=== PATIENT | female | born 1970 | race Caucasian/White ===

== ENCOUNTER → 2018-02-10 10:39 | Outpatient (CLI) | payer BC, SELFPAY ==
[2018-02-10 12:34] LABS: ALB/GLOB Ratio 1.1 RATIO (0.9-2.4); AST(SGOT) 14 U/L (15-37); Alanine Aminotransfer ALT/SGPT 15 U/L (13-56); Albumin, Serum 3.9 g/dL (3.2-5.0); Alkaline Phosphatase 67 U/L (45-117); Anion Gap 8 (5-15); BUN 13 mg/dL (7-18); BUN/Creat Ratio 15.2 RATIO (10-20); Calcium,Total 8.8 mg/dL (8.5-10.1); Chloride 106 mmol/L (98-107); Creatinine, Serum 0.85 mg/dL (0.55-1.02); EST Glomerular Filtration Rate 75 mL/min (>60); Est Glom Filt Rate - Afr Amer 91 mL/min (>60); Globulin 3.6 g/dL (2.2-4.2); Glucose 81 mg/dL (74-106); Potassium 4.1 mmol/L (3.5-5.1); Protein, Total 7.5 g/dL (6.4-8.2); Sodium Level 139 mmol/L (136-145)
== END ==
PROVIDERS: Family Provider Family Medicine; PCP Family Medicine; Visit Provider Family Medicine
DX: L40.9 Psoriasis, unspecified (principal); I10 Essential (primary) hypertension
CPT/HCPCS: 36415; 80053

== ENCOUNTER → 2018-04-22 10:25 | Outpatient (CLI) | payer BC, SELFPAY ==
[2018-04-21 14:22] VITALS: BMI 22.1
[2018-04-28 11:46] LABS: HPV Reflexed? NOT INDICATED
--- OUTSIDE RECORDS SUMMARY | 2018-06-08 05:26 | XMS RPT_ITS ---
:1970 Author Organization [facility] Care Team Providers Name Role Phone Iftikhar Hager Attending Unavailable Brown, Iftikhar Referring Unavailable Brown, Iftikhar Attending Unavailable Brown, Iftikhar Referring Unavailable Brown, Iftikhar Primary Care Unavailable Daisy Espino Attending Unavailable Brown, Iftikhar Attending Unavailable Brown, Iftikhar Referring Unavailable Brown, Iftikhar Attending Unavailable Brown, Iftikhar Primary Care Unavailable PROBLEMS PROBLEMS DATE TYPE CONDITION / CODE ATTENDING STATUS SOURCE 04/21/2018 Unknown Z01.419 - Encounter Iftikhar Hager Active [place] for [facility] (general) (routine) Repository without abnormal findings / Z01.419(ICD-10) 02/11/2018 Unknown L40.9 - Psoriasis, Iftikhar Hager Active [place] unspecified / Community L40.9(ICD-10) Hospital Repository 02/11/2018 Unknown I10 - Essential Iftikhar Hager Active [place] (primary) Community hypertension / Hospital I10(ICD-10) Repository PROCEDURES PROCEDURES No Procedure Records FoundRESULTS RESULTS PAP I-G W/RFX HRHPV Collected: 04/22/2018 Status: F Source[place] 10[place] [facility] [place] Order Comment: CYTOLOGY INFORMATION: - CLINICAL INFORMATION: - DATE LMP/MENOPAUSE: [id number] LMP - COLLECTION VIAL: Thin Prep Vial - ASSISTANT MANAGER TRAINEE SOURCE: CERVICAL - COLLECTION TECHNIQUE: BRUSH ONLY Specimen Comment: [id number] Specimen Comment: Source.............Cervix Specimen Comment: LMP / Prev Treat...[id number] Specimen Comment: No. of containers..01 ThinPrep Vial TYPE CODE TESTS RESULT OUT OF RANGE REFERENCE UNITS LAB L7400.0800 . Normal DIAGN Comment Result Comment: NEGATIVE FOR INTRAEPITHELIAL LESION AND MALIGNANCY. THIS SPECIMEN WAS RESCREENED PART OF OUR SHEET METAL SHOP FOREMAN PROGRAM. LAB L7400.0900 . Normal ADEQ Comment Result Comment: Satisfactory for evaluation. Endocervical and/or squamous metaplastic cells (endocervical component) are present. LAB L7400.1400 . Normal PERFORM Comment Result Comment: Evelia Alford, Small Products I Assembler (ASCP) LAB L7400.1500 . Normal QC Comment REV Result Comment: Esther Montanez, Small Products I Assembler (ASCP) LAB L7400.2575 . Normal TEST METHOD Comment Result Comment: This liquid based ThinPrep(R) pap test was screened with the use of an image guided system. LAB L7400.2600 . Normal . COMM LAB L7400.2700 . Normal PAPSMR Comment Result Comment: The Pap smear is a screening test designed to aid in the detection of premalignant and malignant conditions of the uterine cervix. It is not a diagnostic procedure and should not be used as the sole means of detecting cervical cancer. Both false-positive and false-negative reports do occur. LAB L7400.2800 . Normal HPV RFLX Comment Result Comment: The HPV DNA reflex criteria were not met with this specimen result therefore, no HPV testing was performed. Performed at: - [facility] [place] [id number] Sorority Mother: Callie Ritter MD, Phone: [phone] Performed By: #### L7400.0350 #### [facility] (refer to report for specific site) refer to report for address and phone number INTERNAL MEDICINE Observed: 04/21/2018 Status: F Source: [place] OFFICE VISIT 3:01 PM [facility] [address] [place] [address] [place] [address] OFFICE VISIT Date of Service: 04/21/18 MR#: [id number] Acct: [id number] Name: SHOBHA WEEKS Rep #: [id number] : 1970 Provider: Iftikhar Hager DO Age/Sex: 47/F Location[place] [facility] Status: Signed Intake Vital Signs04/21/18 Height 5 ft 7 in Intake Visit Reasons: PAP Chief Complaint: well woman exam Is patient in pain?: No Allergies No Known Allergies Allergy (Unverified 02/10/18 09:41) Medications lisinopril 20 mg-hydrochlorothiazide 12.5 mg tablet 1 tab PO DAILY #90 tab 02/10/18 [Rx Confirmed 04/21/18] norethindrone-ethinyl estradiol 1 mg-35 mcg tablet 1 tab PO DAILY #28 tab 02/10/18 [Rx Confirmed 02/10/18] sulfasalazine 500 mg tablet 0.5 g PO BID #180 tab 02/10/18 [Rx Confirmed 02/10/18] Is last menstrual period known: Yes PFSH Medical History Psoriasis (Chronic) Surgical History History of orthopedic surgery (Acute) Family History Mother Heart disease Father Heart disease Cancer prostate Social History Smoking Status: Never smoker alcohol intake: current alcohol intake frequency: 0-2 drinks per day substance use type: does not use what type of physical activity do you participate in: yoga HPI HPI Chief Complaint: well woman exam Details: SHOBHA WEEKS, is a 47 F who presents to the office today for a routine gynecological exam ROS Const Constitutional: No weight change, body ache, chills, fatigue, sleep problems, fever(s), change in appetite, snoring, weakness, frequent falls, headache(s) or excessive sweating Eyes Eyes: No change in vision, eye pain, light sensitivity or blurry vision ENT ENT: No headache(s), abnormal hearing, ear pain, tinnitus, nasal congestion, sore throat or neck pain Resp Respiratory: No snoring, cough, shortness of breath or wheezing Cardio Cardiology: No excessive sweating, chest pain at rest, chest pain with exertion, shortness of breath, dyspnea on exertion, palpitations, orthopnea or lightheadedness Gastro GI: No abdominal pain, change in bowel habits, constipation, diarrhea, vomiting, nausea/dyspepsia or cramping Genitourinary-Female: No burning urination, painful urination, urinary incontinence, urinary frequency, abnormal vaginal bleeding, pelvic pain or other Musc Musculoskeletal: No neck pain, abnormal walking, joint pain, back pain, limited range of motion, numbness or tingling Skin Skin: No redness, dry skin, itching, lesions, wounds or rash Neuro Neurology: No weakness, frequent falls, headache(s), abnormal hearing, abnormal walking, numbness, tingling, abnormal speech, dizziness or memory loss Psych Psychiatric: No change in appetite, No memory loss, No anxiety, No depression, No Thoughts of harming yourself/Others Endo Endocrine: No fatigue, excessive sweating, cold intolerance, increased thirst/drinking, heat intolerance, flushing or increased hunger Aller/Imm Allergy/Immunologic: No wheezing, itchy eyes, hives or seasonal allergy symptoms Pollo/Lymp Hematologic/Lymphatic: No easy bleeding, easy bruising or enlarged lymph nodes Exam Const General: cooperative, healthy appearing Resp Effort AND Inspection: normal respiratory effort Auscultation: Bilateral: Clear to Auscultation Cardio Rate: regular rate Rhythm: regular rhythm External Female Exam: normal external appearance, normal appearance of the urethra Urethra: normal appearance of the urethra Speculum Exam - Vagina: normal appearance of the vagina Speculum Exam - Cervix: normal appearance of the cervix Bimanual Exam- Vagina AND Uterus: uterus enlarged (Multiple palpable fibroids) on the right Bimanual Exam- Adnexa, other: normal adnexae, normal rectovaginal exam Recto-Vaginal: normal rectovaginal exam Assessment AND Plan Problems 1. Abnormal gynecological examination Z01.411 2. Intramural and submucous leiomyoma of uterus D25.1; D25.0 Plan This patient was seen for a routine pelvic and Pap. Mammogram was ordered pelvic examination revealed rather extensive fibroid formation the largest of which is probably 5 cm. Her only complaint is occasional dyspareunia not bad enough to consider surgery I discussed the simplicity of a laparoscopic hysterectomy and she understands but at this time she is not symptomatic enough to consider it. Orders Orders: Coding Level of Care Code Off vis,est,level 3 Diagnoses Abnormal gynecological examination Z01.411 Intramural and submucous leiomyoma of uterus D25.1; D25.0 Uterine leiomyoma location: intramural and submucous 04/21/18 1501 <Electronically signed by Iftikhar Hager DO> Date Iftikhar Hager DO Cosigner Signature: Date (if applicable) CC: INTERNAL MEDICINE Observed: 02/10/2018 Status: F Source: [place] OFFICE VISIT 12:12 PM [facility] [address] [place] [address] [place] [address] OFFICE VISIT Date of Service: 02/10/18 MR#: [id number] Acct: [id number] Name: SHOBHA WEEKS Rep #: [id number] : 1970 Provider: Iftikhar Hager DO Age/Sex: 47/F Location[place] [facility] Status: Signed Intake Vital Signs02/10/18 Height 5 ft 7 in Intake Visit Reasons: EST CARE Chief Complaint: establish care Is patient in pain?: No Allergies No Known Allergies Allergy (Unverified 02/10/18 09:41) Medications clobetasol 0.05 % topical cream 1 applic TOPICAL BID 7 Days #60 g 02/10/18 [Rx Confirmed 02/10/18] lisinopril 20 mg-hydrochlorothiazide 12.5 mg tablet 1 tab PO DAILY #90 tab 02/10/18 [Rx Confirmed 02/10/18] norethindrone-ethinyl estradiol 1 mg-35 mcg tablet 1 tab PO DAILY #28 tab 02/10/18 [Rx Confirmed 02/10/18] sulfasalazine 500 mg tablet 0.5 g PO BID #180 tab 02/10/18 [Rx Confirmed 02/10/18] Is last menstrual period known: Yes PFSH Medical History Psoriasis (Chronic) Surgical History History of orthopedic surgery (Acute) Family History Mother Heart disease Father Heart disease Cancer prostate Social History Smoking Status: Never smoker alcohol intake: current alcohol intake frequency: 0-2 drinks per day substance use type: does not use what type of physical activity do you participate in: yoga HPI HPI Chief Complaint: establish care Details: SHOBHA WEEKS, is a 47 F who presents to the office today for establishing care in the new office setting. She is gone through job change and divorce #2 and has had a lot of emotional ups and downs of the last 6 months. ROS Const Constitutional: No weight change, body ache, chills, fatigue, sleep problems, fever(s), change in appetite, snoring, weakness, frequent falls, headache(s) or excessive sweating Eyes Eyes: No change in vision, eye pain, light sensitivity or blurry vision ENT ENT: No headache(s), abnormal hearing, ear pain, tinnitus, nasal congestion, sore throat or neck pain Resp Respiratory: No snoring, cough, shortness of breath or wheezing Cardio Cardiology: No excessive sweating, chest pain at rest, chest pain with exertion, shortness of breath, dyspnea on exertion, palpitations, orthopnea or lightheadedness Gastro GI: No abdominal pain, change in bowel habits, constipation, diarrhea, vomiting, nausea/dyspepsia or cramping Genitourinary-Female: No burning urination, painful urination, urinary incontinence, urinary frequency, abnormal vaginal bleeding, pelvic pain or other Musc Musculoskeletal: No neck pain, abnormal walking, joint pain, back pain, limited range of motion, numbness or tingling Skin Skin: No redness, dry skin, itching, lesions, wounds or rash Neuro Neurology: No weakness, frequent falls, headache(s), abnormal hearing, abnormal walking, numbness, tingling, abnormal speech, dizziness or memory loss Psych Psychiatric: No change in appetite, No memory loss, No anxiety, No depression, No Thoughts of harming yourself/Others Endo Endocrine: No fatigue, excessive sweating, cold intolerance, increased thirst/drinking, heat intolerance, flushing or increased hunger Aller/Imm Allergy/Immunologic: No wheezing, itchy eyes, hives or seasonal allergy symptoms Pollo/Lymp Hematologic/Lymphatic: No easy bleeding, easy bruising or enlarged lymph nodes Exam Const General: healthy appearing Nutritional Appearance: average body habitus Orientation: oriented x3 HENMT Head: normal to inspection Ears: hearing grossly normal bilaterally Nose: external nose normal Mouth: oral mucosae normal Teeth and gingiva: dentition normal Resp Effort AND Inspection: normal respiratory effort Auscultation: Bilateral: Clear to Auscultation Cardio Rate: regular rate Rhythm: regular rhythm Skin Rashes: rashes noted (Patches of Psoriasis) Extrem General: no clubbing, cyanosis or edema Assessment AND Plan Problems 1. Psoriasis L40.9 2. Essential hypertension I10 3. Menorrhagia with regular cycle N92.0 Plan This patient was here for a checkup on her medication, especially her medication for her psoriasis. Her blood pressure was significantly elevated and it remained elevated on repeat readings. Because of that her medicines were refilled and we started her on lisinopril hydrochlorothiazide the combination medicine being started because her pressure was so high. She is to recheck her pressures at home and let us know what they are after 2 weeks of being on medication. She is also overdue for Pap smear so I will set up a recheck in 2 months to do the Pap smear and recheck her blood pressure at that time. Orders Orders: Medications New: Plan Detail Follow Up 2 Months Coding Level of Care Code Off vis,est,level 3 Diagnoses Psoriasis L40.9 Essential hypertension I10 Hypertension type: essential hypertension Menorrhagia with regular cycle N92.0 Menorrahagia type: with regular cycle 02/10/18 1212 <Electronically signed by Iftikhar Hager DO> Date Iftikhar Hager DO [place] Signature: Date (if applicable) CC: COMPREHENSIVE METABOLIC Collected: 02/10/2018 Status: F [place] 11[place] [facility] [place] CODE TESTS RESULT OUT OF RANGE REFERENCE UNITS LAB L501.0100 74-106 mg/dL Normal GLU 81 Result Comment: Please note revised GLUCOSE reference range effective 2017. LAB L501.1000 7-18 mg/dL Normal BUN 13 LAB L501.1100 0.55-1.02 mg/dL Normal CREAT,SERUM 0.85 Result Comment: The validity of the calculated GFR AND GFRAA in patients over 70 years has not been determined. Clinical correlation is essential. LAB L501.1110 >60 mL/min Normal EST GFR 75 Result Comment: Non- GFR Calc LAB L501.1115 >60 mL/min Normal EST GFR - AA 91 Result Comment: GFR Calc LAB L501.1300 10-20 RATIO Normal BUN/CRE 15.2 LAB L501.1500 6.4-8.2 g/dL T Normal PROT 7.5 LAB L501.1800 3.2-5.0 g/dL Normal ALB 3.9 LAB L501.1950 2.2-4.2 g/dL Normal GLOB 3.6 LAB L501.2000 0.9-2.4 RATIO Normal A/G 1.1 LAB L501.2200 8.5-10.1 mg/dL CA Normal 8.8 LAB L501.4100 15-37 U/L Low AST 14 LAB L501.4305 45-117 U/L Normal ALK P 67 LAB L501.4405 13-56 U/L Normal ALT 15 LAB L501.4600 0.20-1.00 mg/dL T Normal BILI 0.50 LAB L501.5300 136-145 mmol/L NA Normal 139 LAB L501.5600 3.5-5.1 mmol/L K Normal 4.1 LAB L501.5900 98-107 mmol/L CL Normal 106 LAB L501.6100 21.0-32.0 mmol/L Normal CO2 25.0 LAB L501.6200 5-15 Normal GAP 8 Performed By: #### L500.4050 #### [facility] [address] [place], [address] ALLERGIES ALLERGIES DATE TYPE / CODE NAME / CODE REACTION SEVERITY SOURCE 02/10/2018 Drug No Known Unknown [facility] Allergy/4160 Allergies/F00 Hospital 87949(SNOMED [id number](RXNOR Repository CT) M) ENCOUNTERS ENCOUNTERS ADMIT/DISCHARGE ACCOUNT ADMITTING ENCOUNTER LOCATION SOURCE NUMBER CLASS 04/22/2018 [id number] [place] [facility] ing:LABSPEC Repository 04/21/2018/ [id number] Ambulatory BMSBuilding:B [place] 8 4 [facility] Repository 02/10/2018 [id number] Amb[place] [facility] ing:MTLAB Repository 02/10/2018/ [id number] Ambulatory BMSBuilding:B [place] 8 9 [facility] Repository 12/29/2017 [id number] Ambulatory BMSBuilding:B [place] 3 [facility] Repository PAYERS PAYERS ENCOUNTER GUARANTOR PAYER SUBSCRIBER SOURCE 04/22/2018 SHOBHA [place] Primary ARNEL [place] [id number] ISHA Insurance:[place] Number: [facility] [address]Smt: 330 [id number] Repository [phone] () Date:[id number] [address] [place] [address] 19742IL: 04/22/2018 Secondary NOT GIVENUNK [place] Insurance:SELF PAY [facility] Number: Effective Repository Date:2018-04-22 04/21/2018 SHOBHA Barahona Primary ARNEL [place] [id number] ISHA Insurance:[place] Number: [facility] [address]Uyy: 330 [id number] Repository [phone] () Date:0540-23-04WI [address] [place] [address] 23056JJ: 04/21/2018 Secondary NOT GIVENUNK [place] Insurance:SELF PAY [facility] Number: Effective Repository Date:2018-04-21 02/10/2018 SHOBHA A Primary ARNEL BRITTCKSHREE [place] [id number] S Insurance:[facility] y Number: [place], [place] [id number] Repository [phone]: (330) Date:[id number] [phone] () [address] [place] [address] 60080SC: 02/10/2018 Secondary NOT GIVENUNK [place] Insurance:SELF PAY [facility] Number: Effective Repository Date:2018-02-10 02/10/2018 SHOBHA A Primary SHOBHA A [place] [id number] S Insurance:[facility] SWICKDOB: [facility] [id number] [id number] Repository [phone]: (330) Date:[id number] [phone] () [phone] [address]YD: 02/10/2018 Secondary NOT GIVENUNK [place] Insurance:SELF PAY [facility] Number: Effective Repository Date:2017-12-29 12/29/2017 SHOBHA A Primary SHOBHA A [place] [id number] S Insurance:KENDALL SWICKDOB: [facility] RULEPolicy [place]: [id number] [id number] Repository [phone]: 330) Date: [phone] () ERAN GRANT [id number]: 12/29/2017 Secondary NOT GIVENUNK [place] Insurance:SELF PAY [facility] Number: Effective Repository Date:2017-12-29
== END ==
PROVIDERS: Family Provider Family Medicine; PCP Family Medicine; Referring Provider Family Medicine; Visit Provider Family Medicine
DX: Z01.419 Encounter for gynecological examination (general) (routine) without abnormal findings (principal)
CPT/HCPCS: 88175; G0145

== ENCOUNTER → 2018-06-18 06:59 | Outpatient (CLI) | payer BC, SELFPAY ==
[2018-04-21 14:22] VITALS: BMI 22.1
--- NOTE | 2018-06-18 07:03 | BI_ITS ---
MAMMOGRAPHY - BILATERAL SCREENING REASON FOR EXAM: Female, 47 years old. Routine annual screening examination. PERTINENT HISTORY: Non-contributory. TECHNIQUE: Digital bilateral breast sade (3D mammographic acquisition) in the CC and MLO projections. 2-D mediolateral oblique (MLO) and craniocaudad (CC) views of both breasts were obtained. CAD: Full Field Digital Mammography with Computer Added Detection was performed. COMPARISON: None. Baseline examination. FINDINGS: Breast Composition: The breasts are extremely dense, which lowers the sensitivity of mammography. There are no dominant masses or suspicious calcifications. No other significant abnormalities are identified. BI/SCREENING MAMM (CAD), BILAT IMPRESSION: Negative screening mammogram. Yearly followup mammogram recommended. (A) ASSESSMENT CATEGORY: BIRADS Category 1: Negative. A letter regarding these results will be sent to the patient by the facility within 30 days. Approximately 10% of breast cancers are not detected by mammography. A normal mammogram should not delay biopsy of a clinically suspicious abnormality. [id number] Electronically Signed: Carrillo Llanos MD at 8:52 EST , Service support ,
== END ==
PROVIDERS: Family Provider Family Medicine; PCP Family Medicine; Referring Provider Family Medicine; Visit Provider Family Medicine
DX: Z12.31 Encounter for screening mammogram for malignant neoplasm of breast (principal)
CPT/HCPCS: 77063; 77067

== ENCOUNTER → 2018-06-29 07:41 | Outpatient (CLI) | payer BC, SELFPAY ==
[2018-06-29 07:32] VITALS: BMI 20.5
--- NOTE | 2018-06-29 08:00 | RAD_ITS ---
STUDY: X-RAY CHEST REASON FOR EXAM: Female, 47 years old. Flulike symptoms. TECHNIQUE: PA and lateral views of the chest. COMPARISON: None. FINDINGS: There is evidence of liver and right lower lobe and right middle lobe infiltrates. There is no demonstrated pleural abnormality. Normal size heart. Normal mediastinum and va. Normal visualized pulmonary arteries. Normal visualized aortic arch and descending thoracic aorta. Normal visualized thoracic spine. Normal visualized ribs, clavicles, and shoulders. There is no demonstrated abnormality of the visualized soft tissue structures of the upper abdomen. RAD/Chest PA and Lateral IMPRESSION: Right lower lobe and right middle lobe infiltrates. Follow-up is recommended. Electronically Signed: Carrillo Llanos MD at 8:28 EST , Service support ,
== END ==
PROVIDERS: Family Provider Family Medicine; PCP Family Medicine; Referring Provider Physician Assistant Surgical; Visit Provider Physician Assistant Surgical
DX: R05 Cough (principal); R50.9 Fever, unspecified
CPT/HCPCS: 71046

== ENCOUNTER 2018-08-23 11:01 | Emergency (ER) | payer BC, SELFPAY ==
[2018-07-06 13:16] VITALS: BMI 20.5
[2018-08-23 11:02] VITALS: BP 170/81; PULSE 76; RESP 16; TEMP 36.8; O2SAT 100; BMI 21.2
--- NOTE | 2018-08-23 11:29 | ED.DCSUM_ITS ---
- ER Visit Summary Date of Service: 08/23/18 Chief Complaint: Dizziness History of Present Illness: The patient is a 47 F who presents the emergency room with dizziness and vomiting. She states that during the night last night she rolled over in bed and was very dizzy. She is able to get to the bathroom h ad vomiting her symptoms have continued. She eventually called EMS. She states she cannot open her eyes as it makes it seem like her eyes are crossing. She denies any arm or leg symptoms. No headache. Physical Examination: Afebrile vital signs are stable Gen: Well-nourished well-developed Head: Normocephalic atraumatic Eyes: Perrl EOMI positive nystagmus with fast component to the left ENT: TMs clear no rhinorrhea moist mucous membranes Neck: Supple no lymphadenopathy no JVD nontender CVS: Regular rate rhythm no murmurs normal S1-S2 Respiratory: No distress clear to auscultation bilaterally chest nontender Abdomen: Soft nontender nondistended normal bowel sounds no masses Back: Nontender Extremity: Nontender no edema Skin: Normal color no rash Neuro: alert orientated ?3 CN II-XII intact normal strength sensation reflexes was normal finger to nose test was normal. Psych: Normal affect normal mood Test Results: White blood cell count 12.6. Glucose 108. Emergency Department Course and Treatment: Patient received Zofran IV fluids and Valium. Repeat examination shows her to be feeling better. Patient states that she still has some residual dizziness. We ambulated her with nursing and the patient still felt dizziness was little unsteady but was not nauseous anymore. We continue to observe her for about another hour. Patient this time walks much better. I am going to discharge her home with Valium. Also write for some nausea medication. Return if worsening or concerns. Impression: 1. Vertigo This note was generated with [employer] dictation software. It may contain incorrect words, spelling, and punctuation that were not noted in review of the chart prior to signing ED Disposition - Plan for ED Patient: Disposition: Home or Assisted Living Instructions: ED BPV Vertigo Prescriptions: Ondansetron [Zofran Odt] 4 mg PO Q6H PRN PRN #15 tab PRN Reason: Nausea Diazepam [Valium] 5 mg PO Q8 PRN #10 tab PRN Reason: vertigo Referrals: Iftikhar Hager DO [Primary Care Provider] - 1 Week
[2018-08-23] MEDS: proMETHazine 25 MG/ML Syringe 12.5 MG IV (11:35)
[2018-08-23] MEDS: diazePAM 5 MG Tablet PO (11:36)
[2018-08-23] MEDS: 0.9% Normal Saline 1,000 ML 1000 ML IV (11:36)
[2018-08-23 11:46] LABS: Absolute Neutrophil Count 11.2 X10^3/uL (2.0-7.7); Basophil# 0.01 X10^3/uL; Basophil% 0.1 % (0-1); Hematocrit 40.5 % (37-47); Hemoglobin 13.6 g/dl (12.0-15.0); Lymphocyte % 8.7 % (19-41); Mean Corp Hgb Conc 33.6 g/gl (32-36); Mean Corpuscular Hgb 30.3 pg (27.0-32.0); Mean Corpuscular Volume 90.2 fL (81-99); Mean Platelet Vol. 11.2 fl (6.2-12.0); Monocyte# 0.28 X10^3/uL; Monocyte% 2.2 % (0-10); Neutrophil # 11.19 X10^3/uL (2.7-7.7); Neutrophil % 88.8 % (47-70); Platelet Count 263 K/mm3 (150-450); RBC Distribution Width CV 15.4 % (11.6-14.6); Red Blood Count 4.49 M/mm3 (4.2-5.4); White Blood Count 12.6 K/mm3 (4.4-11.0)
[2018-08-23 11:47] LABS: POSITIVE COUNT NO; POSITIVE DIFFERENTIAL NO; POSITIVE MORPHOLOGY NO
[2018-08-23 11:57] LABS: Anion Gap 8 (5-15); BUN 15 mg/dL (7-18); BUN/Creat Ratio 19.4 RATIO (10-20); Calcium,Total 8.9 mg/dL (8.5-10.1); Chloride 110 mmol/L (98-107); Creatinine, Serum 0.77 mg/dL (0.55-1.02); EST Glomerular Filtration Rate 84 mL/min (>60); Est Glom Filt Rate - Afr Amer 102 mL/min (>60); Estimated Creatinine Clearance 85.94 ml/min; Glucose 108 mg/dL (74-106); Potassium 3.9 mmol/L (3.5-5.1); Sodium Level 141 mmol/L (136-145)
[2018-08-23 13:02] VITALS: BP 132/77
[2018-08-23 15:16] VITALS: BP 115/74; PULSE 74; RESP 16; O2SAT 98
== END 2018-08-23 15:18 | disposition home or self-care (01) ==
PROVIDERS: Emergency Provider Emergency Medicine; Family Provider Family Medicine; PCP Family Medicine
DX: R42 Dizziness and giddiness (principal); R11.2 Nausea with vomiting, unspecified; I10 Essential (primary) hypertension
CPT/HCPCS: 80048; 85025; 96361; 96374; 99285; J7030; A4216

== ENCOUNTER → 2019-02-11 10:02 | Outpatient (CLI) | payer BC, SELFPAY ==
[2019-02-10 14:46] VITALS: BMI 21.2
[2019-02-11 13:00] LABS: Anion Gap 6 (5-15); BUN 19 mg/dL (7-18); BUN/Creat Ratio 21.7 RATIO (10-20); Chloride 109 mmol/L (98-107); Creatinine, Serum 0.88 mg/dL (0.55-1.02); EST Glomerular Filtration Rate 73 mL/min (>60); Est Glom Filt Rate - Afr Amer 88 mL/min (>60); Glucose 72 mg/dL (74-106); Potassium 4.2 mmol/L (3.5-5.1); Sodium Level 141 mmol/L (136-145)
== END ==
PROVIDERS: Family Provider Family Medicine; PCP Family Medicine; Visit Provider Family Medicine
DX: I10 Essential (primary) hypertension (principal)
CPT/HCPCS: 36415; 80048

== ENCOUNTER → 2019-06-20 12:48 | Outpatient (CLI) | payer BC, SELFPAY ==
[2019-02-10 14:46] VITALS: BMI 21.2
--- NOTE | 2019-06-20 12:48 | BI_ITS ---
MAMMOGRAPHY - BILATERAL SCREENING REASON FOR EXAM: Female, 48 years old. Routine annual screening examination. PERTINENT HISTORY: Non-contributory. TECHNIQUE: Digital bilateral breast caden (3D mammographic acquisition) in the CC and MLO projections. 2-D mediolateral oblique (MLO) and craniocaudad (CC) views of both breasts were obtained. CAD: Full Field Digital Mammography with Computer Added Detection was performed. COMPARISON: Comparison is made with prior examination dated June 18, 2018. FINDINGS: Breast Composition: The breasts are extremely dense, which lowers the sensitivity of mammography. There are no dominant masses or suspicious calcifications. No other significant abnormalities are identified. There has been no significant change since the prior study. BI/SCREEN MAMM (CAD) W/CADEN BILAT IMPRESSION: Stable bilateral screening mammogram. Yearly follow-up mammogram recommended. (A) ASSESSMENT CATEGORY: BIRADS Category 1: Negative. A letter regarding these results will be sent to the patient by the facility within 30 days. Approximately 10% of breast cancers are not detected by mammography. A normal mammogram should not delay biopsy of a clinically suspicious abnormality. [id number] Electronically Signed: Carrillo Llanos, at 13:47 EST , Service support ,
== END ==
PROVIDERS: Family Provider Family Medicine; PCP Family Medicine; Referring Provider Family Medicine; Visit Provider Family Medicine
DX: Z12.31 Encounter for screening mammogram for malignant neoplasm of breast (principal)
CPT/HCPCS: 77063; 77067

== ENCOUNTER → 2020-07-04 15:54 | Outpatient (CLI) | payer OTHER, SELFPAY ==
[2020-07-04 17:39] LABS: ALB/GLOB Ratio 1.5 RATIO (0.9-2.4); AST(SGOT) 16 U/L (15-37); Alanine Aminotransfer ALT/SGPT 27 U/L (13-56); Albumin, Serum 4.3 g/dL (3.2-5.0); Alkaline Phosphatase 100 U/L (45-117); Anion Gap 5 (5-15); BUN 19 mg/dL (7-18); BUN/Creat Ratio 22.2 RATIO (10-20); Calcium,Total 9.4 mg/dL (8.5-10.1); Chloride 105 mmol/L (98-107); Creatinine, Serum 0.86 mg/dL (0.55-1.02); EST Glomerular Filtration Rate 74 mL/min (>60); Est Glom Filt Rate - Afr Amer 90 mL/min (>60); Globulin 2.8 g/dL (2.2-4.2); Glucose 75 mg/dL (74-106); Potassium 4.6 mmol/L (3.5-5.1); Protein, Total 7.1 g/dL (6.4-8.2); Sodium Level 138 mmol/L (136-145)
== END ==
PROVIDERS: PCP Family Medicine; Referring Provider Family Medicine; Visit Provider Family Medicine
DX: I10 Essential (primary) hypertension (principal)
CPT/HCPCS: 36415; 80053

== ENCOUNTER → 2020-07-12 14:51 | Outpatient (CLI) | payer OTHER, SELFPAY ==
--- NOTE | 2020-07-12 14:52 | BI_ITS ---
MAMMOGRAPHY - BILATERAL SCREENING REASON FOR EXAM: Female, 49 years old. Routine annual screening examination. PERTINENT HISTORY: Non-contributory. TECHNIQUE: Digital bilateral breast caden (3D mammographic acquisition) in the CC and MLO projections. 2-D mediolateral oblique (MLO) and craniocaudad (CC) views of both breasts were obtained. CAD: Full Field Digital Mammography with Computer Added Detection was performed. COMPARISON: Comparison is made with prior study dated 06/20/2019 and 06/18/2018. FINDINGS: Breast Composition: The breasts are extremely dense, which lowers the sensitivity of mammography. There are no dominant masses or suspicious calcifications. No other significant abnormalities are identified. There has been no significant change since the prior study. BI/SCRN MAMM (CAD)W/CADEN BILAT IMPRESSION: Stable bilateral screening mammogram. Yearly follow-up mammogram recommended. (A) ASSESSMENT CATEGORY: BIRADS Category 1: Negative. A letter regarding these results will be sent to the patient by the facility within 30 days. Approximately 10% of breast cancers are not detected by mammography. A normal mammogram should not delay biopsy of a clinically suspicious abnormality. [id number] Electronically Signed: Carrillo Llanos MD at 15:28 EST , Service support ,
== END ==
PROVIDERS: PCP Family Medicine; Referring Provider Family Medicine; Visit Provider Family Medicine
DX: Z12.31 Encounter for screening mammogram for malignant neoplasm of breast (principal)
CPT/HCPCS: 77063; 77067

== ENCOUNTER → 2021-10-16 | Outpatient (CLI) | payer BC, SELFPAY ==
[2021-10-16 17:09] LABS: Albumin, Serum 4.3 g/dL (3.2-5.0); BUN 17 mg/dL (7-18); BUN/Creat Ratio 23.2 RATIO (10-20); Creatinine, Serum 0.73 mg/dL (0.55-1.02); EST Glomerular Filtration Rate 88 mL/min (>60); Est Glom Filt Rate - Afr Amer 107 mL/min (>60); Glucose 118 mg/dL (74-106); Protein, Total 7.2 g/dL (6.4-8.2)
[2021-10-16 17:10] LABS: ALB/GLOB Ratio 1.5 RATIO (0.9-2.4); AST(SGOT) 15 U/L (15-37); Alanine Aminotransfer ALT/SGPT 24 U/L (13-56); Alkaline Phosphatase 85 U/L (45-117); Anion Gap 7 (5-15); Calcium,Total 9.3 mg/dL (8.5-10.1); Chloride 107 mmol/L (98-107); Globulin 2.9 g/dL (2.2-4.2); Potassium 3.8 mmol/L (3.5-5.1); Sodium Level 140 mmol/L (136-145)
== END | disposition home or self-care (01) ==
LOC: BIMLAB 14:57
PROVIDERS: PCP Family Medicine; Referring Provider Family Medicine; Visit Provider Family Medicine
DX: I10 Essential (primary) hypertension (principal)
CPT/HCPCS: 36415; 80053

== ENCOUNTER → 2021-10-22 | Outpatient (CLI) | payer BC, SELFPAY ==
--- NOTE | 2021-10-22 13:28 | BI_ITS ---
MAMMOGRAPHY - BILATERAL SCREENING REASON FOR EXAM: Female, 50 years old. Routine annual screening examination. PERTINENT HISTORY: Non-contributory. TECHNIQUE: Digital bilateral breast caden (3D mammographic acquisition) in the CC and MLO projections. 2-D mediolateral oblique (MLO) and craniocaudad (CC) views of both breasts were obtained. CAD: Full Field Digital Mammography with Computer Added Detection was performed. COMPARISON: Comparison is made with prior study 07/12/2020 and 06/20/2019 FINDINGS: Breast Composition: The breasts are extremely dense, which lowers the sensitivity of mammography. There are no dominant masses or suspicious calcifications. No other significant abnormalities are identified. There has been no significant change since the prior study. BI/SCRN MAMM (CAD)W/CADEN BILAT IMPRESSION: Stable bilateral screening mammogram. Yearly follow-up mammogram recommended. (A) ASSESSMENT CATEGORY: BIRADS Category 1: Negative. A letter regarding these results will be sent to the patient by the facility within 30 days. Approximately 10% of breast cancers are not detected by mammography. A normal mammogram should not delay biopsy of a clinically suspicious abnormality. [id number] Electronically Signed: Carrillo Llanos MD at 14:36 EDT ,
== END | disposition home or self-care (01) ==
LOC: OPBI 13:27
PROVIDERS: PCP Family Medicine; Visit Provider Family Medicine
DX: Z12.31 Encounter for screening mammogram for malignant neoplasm of breast (principal)
CPT/HCPCS: 77063; 77067

== ENCOUNTER → 2023-08-12 | Outpatient (CLI) | payer BC, SELFPAY ==
[2023-08-12 13:05] LABS: ALB/GLOB Ratio 1.6 RATIO (0.9-2.4); AST(SGOT) 23 U/L (15-37); Alanine Aminotransfer ALT/SGPT 32 U/L (13-56); Albumin, Serum 4.6 g/dL (3.2-5.0); Alkaline Phosphatase 75 U/L (45-117); Anion Gap 6 (5-15); BUN 21 mg/dL (7-18); BUN/Creat Ratio 23.8 RATIO (10-20); Calcium,Total 9.4 mg/dL (8.5-10.1); Chloride 108 mmol/L (98-107); Creatinine, Serum 0.88 mg/dL (0.55-1.02); EST Glomerular Filtration Rate 71 mL/min (>60); Est Glom Filt Rate - Afr Amer 85 mL/min (>60); Globulin 2.8 g/dL (2.2-4.2); Glucose 76 mg/dL (74-106); Potassium 4.6 mmol/L (3.5-5.1); Protein, Total 7.4 g/dL (6.4-8.2); Sodium Level 141 mmol/L (136-145)
== END | disposition home or self-care (01) ==
LOC: BIMLAB 10:27
PROVIDERS: PCP Family Medicine; Referring Provider Family Medicine; Visit Provider Family Medicine
DX: I10 Essential (primary) hypertension (principal)
CPT/HCPCS: 36415; 80053

== ENCOUNTER → 2024-02-10 | Outpatient (CLI) | payer BC, SELFPAY ==
[2024-02-15 21:07] LABS: HPV APTIMA, High Risk Positive (Negative)
== END | disposition home or self-care (01) ==
LOC: LABSPEC 10:16
PROVIDERS: PCP Family Medicine; Referring Provider Family Medicine; Visit Provider Family Medicine
DX: Z01.419 Encounter for gynecological examination (general) (routine) without abnormal findings (principal)
CPT/HCPCS: 87624; 88142

== ENCOUNTER → 2024-03-02 | Outpatient (CLI) | payer BC, SELFPAY ==
--- NOTE | 2024-03-02 10:05 | BI_ITS ---
MAMMOGRAPHY - BILATERAL SCREENING REASON FOR EXAM: Female, 53 years old. Routine annual screening examination. PERTINENT HISTORY: Non-contributory. TECHNIQUE: Digital bilateral breast caden (3D mammographic acquisition) in the CC and MLO projections. 2-D mediolateral oblique (MLO) and craniocaudad (CC) views of both breasts were obtained. CAD: Full Field Digital Mammography with Computer Added Detection was performed. COMPARISON: Comparison is made with prior study dated October 22, 2021 and July 12, 2012. FINDINGS: Breast Composition: The breasts are extremely dense, which lowers the sensitivity of mammography. There are no dominant masses or suspicious calcifications. No other significant abnormalities are identified. There has been no significant change since the prior study. BI/SCRN MAMM (CAD)W/CADEN BILAT IMPRESSION: Stable bilateral screening mammogram. Yearly follow-up mammogram recommended. (A) ASSESSMENT CATEGORY: BIRADS Category 1: Negative. A letter regarding these results will be sent to the patient by the facility within 30 days. Approximately 10% of breast cancers are not detected by mammography. A normal mammogram should not delay biopsy of a clinically suspicious abnormality. [id number] Electronically Signed: Carrillo Llanos MD at 12:03 EDT ,
== END | disposition home or self-care (01) ==
LOC: OPBI 10:05
PROVIDERS: PCP Family Medicine; Referring Provider Family Medicine; Visit Provider Family Medicine
DX: Z12.31 Encounter for screening mammogram for malignant neoplasm of breast (principal)
CPT/HCPCS: 77063; 77067